=== PATIENT | female | born 1960 | race Caucasian/White ===

== ENCOUNTER 2022-09-11 15:56 | Emergency (ER) | payer BC, SELFPAY ==
[2022-09-11 16:00] VITALS: BP 135/75; PULSE 67; RESP 18; TEMP 36.1; O2SAT 99; BMI 23.6
--- NOTE | 2022-09-11 16:16 | ED.GENADULT ---
HPI - General Adult General Time Seen by Provider: 16:17 Date Seen: 09/11/22 Chief complaint: Chest Pain Stated complaint: Chest pains Time Seen by Provider: 09/11/22 16:16 Source: patient and RN notes reviewed Mode of arrival: ambulatory Limitations: no limitations History of Present Illness HPI narrative: Patient is a 61-year-old female coming in with complaint of left-sided chest pain. It has been there about a week. She admits for about a month she has just been tired and fatigued. On Sunday the chest pain seemed to radiate across to the right side. She does not have any GI symptoms with this. She has remotely had heartburn, this feels nothing like it. Seems to be getting worse, is not pleuritic. She cannot touch it, seems deeper than that. She is a smoker, there is a lot of family history of heart disease which concerned her. She herself has never been diagnosed with heart disease. Nothing has really made this improve or worsen that she can state. No associated GI symptoms. No fevers chills, no cough or cold symptoms. She is not short of breath. She will occasionally feel a little sense of a flip-flop or regular be in her chest but no prolonged palpitations or abnormal heart beat that is sustained. She has a history trigeminal neuralgia, has had a partial thyroidectomy but is not on any thyroid supplement. Related Data Previous Rx's Medication Instructions Recorded carbamazepine 100 mg 100 mg PO BID #180 caps 06/02/22 capsule,extended release [id number] hydrocodone 5 mg-acetaminophen 325 1 tab PO Q8H PRN pain #30 tabs 06/02/22 mg tablet Allergies Allergy/AdvReac Type Severity Reaction Status Date / Time No Known Drug Allergies Allergy Verified 09/11/22 16:04 Review of Systems Status of ROS: Reports: 10 or more systems reviewed and unremarkable except as noted in History and below PFSH PFS Surgical History Status post hysterectomy ?Z90.710 - Acquired absence of both cervix and uterus (ICD-10) 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 (ICD-10) Social History Smoking Status: Heavy tobacco smoker What tobacco products do you use: cigarettes Smoking packs per day: 0.5 Smoking cigarettes per day: 10.0 Years smoked: 40 Smoking pack-years: 20.00 Do you use any of these nicotine containing products: None Second hand tobacco smoke exposure: No How often do you have a drink containing alcohol: never AUDIT-C Alcohol total score: 0 Non-prescribed substance use: denies use Exam Const: Vital Signs, click to edit/add: Vital Signs - 24 hr 09/11/22 16:00 09/11/22 16:24 Temperature 97.0 F L Pulse Rate [Pulse Oximeter] 67 Respiratory Rate 18 Blood Pressure [Ri ght Upper Arm] 135/75 Pulse Oximetry 99 98 Oxygen Delivery Me thod Room Air Documenting provider has reviewed patient's vital signs: yes Common normals: no apparent distress, average body habitus, oriented x3, no limitations, healthy appearing and alert General appearance: cooperative, comfortable, well kempt and well developed Nutritional appearance: overweight HENMT: Common normals: normocephalic, head/scalp atraumatic, hearing grossly normal bilaterally, external ears normal, external nose normal, nasal mucous membranes and turbinates normal, moist oral mucous membranes and oropharynx normal Head and scalp: normocephalic and atraumatic Nose: external nose normal and nasal mucous membranes and turbinates normal External ear: external ears normal Eye: Common normals: PERRL, EOMs intact bilaterally, conjunctivae normal and no scleral icterus Conjunctiva: conjunctiva(e) normal Pupil: PERRL Neck & C-Spine: Common normals: full ROM, no lymphadenopathy, supple and no JVD Other: Well-healed scar anteriorly along the base of her neck, feel no thyromegaly masses or nodules. Chest: Common normals: inspection of chest normal and palpation of chest normal (Underlying breast without any palpable abnormality) Resp: Common normals: normal respiratory effort, no retractions, no use of accessory muscles and clear to auscultation bilaterally Auscultation: clear to auscultation bilaterally Cardio: Common normals: no JVD, regular rate, regular rhythm, S1 normal heart sound, S2 normal heart sound, no gallops, no clicks and no murmurs Rate: regular rate Rhythm: regular rhythm Heart sounds: S1 normal and S2 normal GI: Common normals: Normal to inspection, nondistended, normoactive bowel sounds present, soft to palpation, non-tender, no hepatosplenomegaly and no masses Palpation: soft and no hepatosplenomegaly Extremity: Other: No lower extremity edema, no calf tenderness. Neuro: Common normals: oriented x3 Sensorium/orientation: alert Psych: Appearance: well kempt Course Course Hospital Course: Patient has had a week of symptoms, solitary troponin and EKG should be sufficient. Liver on cardiac monitoring pulse oximetry. Did review with her will look at a chest x-ray, may need to proceed to chest CT imaging. I am also doing a D-dimer. Given she has had a partial thyroidectomy and has had some symptoms of fatigue for about a month, will do screening TSH. This time she is hemodynamically stable. Cardiopulmonary etiologies, even possibly GI etiologies with referral to chest could all be possible. Musculoskeletal certainly could be underlying causative issue for her pain. Symptoms are not pleuritic. If her troponin or EKG should show something abnormal, will consider aspirin but otherwise I think other etiologies are more likely given that she has had a week of symptoms. Reevaluation(s) Reevaluation #1: Reviewed with patient her labs are all normal, awaiting over-read of her chest x-ray. Discussed of the chest x-ray has no concerns with that from the radiologist, likely outpatient follow-up. Could consider starting something like omeprazole in case this might be gastric or GI related. Time: 18:15 Reevaluation #2: Reviewed with patient her chest x-ray is coming back normal. We will discharge to home. Instead of prescription omeprazole, she wants to miner pick [id number] which is fine. Will have her do a 2 week trial. Time: 18:48 Vital Signs Vital signs: Initial Vital Signs Temperature 97.0 F L 09/11/22 16:00 Temperature Source Temporal Artery Scan 09/11/22 16:00 Pulse Rate 67 09/11/22 16:00 Respiratory Rate 18 09/11/22 16:00 Blood Pressure 135/75 09/11/22 16:00 Blood Pressure Mean 95 09/11/22 16:00 Blood Pressure Position Sitting 09/11/22 16:00 Pulse Oximetry 99 09/11/22 16:00 Oxygen Delivery Method Room Air 09/11/22 16:00 Vital Signs Temperature 97.0 F L 09/11/22 16:00 Pulse Rate 67 09/11/22 16:00 Respiratory Rate 18 09/11/22 16:00 Blood Pressure 135/75 09/11/22 16:00 Pulse Oximetry 99 09/11/22 16:00 Oxygen Delivery Method Room Air 09/11/22 16:00 Temperature 97.0 F L 09/11/22 16:00 Pulse Rate 67 09/11/22 16:00 Respiratory Rate 18 09/11/22 16:00 Blood Pressure 135/75 09/11/22 16:00 Pulse Oximetry 98 09/11/22 16:24 Oxygen Delivery Method Room Air 09/11/22 16:00 Medical Decision Making Lab Data Lab results reviewed: Yes I reviewed the patient's lab results Labs: Lab Results 09/11/22 09/11/22 09/11/22 Range/Units 16:15 16:35 17:30 WBC 7.47 (4.50-11.00) K/uL RBC 4.24 (4.00-5.20) m/uL Hgb 13.1 (12.0-16.0) gm/dL Hct 39.1 (33.0-51.0) % MCV 92 (80-100) fL MCH 31 (26-34) pg MCHC 34 (32-36) gm/dL RDW Coeff of Maria Dolores 12.4 (11.5-15.5) % Plt Count 201 (140-440) K/uL Neut % (Auto) 61.3 (42.0-72.0) % Lymph % (Auto) 32.9 (20-44) % [place] % (Auto) 4.4 (0.0-11.0) % Eos % (Auto) 0.9 (0.0-7.0) % Baso % (Auto) 0.4 (0.0-3.0) % Neut # (Auto) 4.57 (1.7-7.0) K/uL Lymph # (Auto) 2.46 (0.90-2.90) K/uL [place] # (Auto) 0.30 (0.00-0.90) K/UL Eos # (Auto) 0.07 (0.00-0.50) K/uL Baso # (Auto) 0.03 (0.00-0.30) K/uL D-Dimer Quant (PE/DVT) 0.30 (0.00-0.50) ug/ml Sodium 137 (135-149) mmol/L Potassium 3.9 (3.6-5.1) mmol/L Chloride 106 (96-114) mmol/L Carbon Dioxide 26 (20-32) mmol/L BUN 11 (7-30) mg/dL Creatinine 0.8 (0.5-1.5) mg/dL Estimated Creat Clear 48.87 Estimated GFR 84 ml/min Glucose 103 (60-115) mg/dL Lactate 0.6 (0.5-1.9) mmol/L Calcium 8.8 (8.4-10.6) mg/dL Magnesium 2.1 (1.5-2.6) mg/dL Total Bilirubin 0.4 (0.1-1.5) mg/dL AST 23 (12-35) U/L ALT 14 (4-35) U/L Alkaline Phosphatase 78 (40-150) U/L Troponin I < 0.01 L (0.01-0.04) ng/mL C-Reactive Protein < 0.5 L (0.5-1.0) mg/dL NT-Pro-B Natriuret Pep 73 pg/mL Total Protein 7.3 (6.0-8.3) g/dL Albumin 4.2 (3.3-5.0) g/dL Lipase 69 (23-300) U/L TSH 2.550 (0.270-4.200) uIU/mL Urine Color Yellow (Yellow) Urine Appearance Clear (Clear) Urine pH 7.0 (5.0-8.5) Ur Specific [place] 1.010 (1.000-1.030) Urine Protein Negative (Negative) Urine Glucose (UA) Negative (Negative) Urine Ketones Negative (Negative) Urine Blood Trace-intact A (Negative) Urine Nitrite Negative (Negative) Urine Bilirubin Negative (Negative) Urine Urobilinogen 0.2 (0.2-1.0) Ur Leukocyte Esterase Negative (Negative) Urine RBC 0-2 (0-2) Urine WBC 0-2 (0-5) Ur Squamous Epith Cells None (None-Few) Urine Bacteria None (None) POC Troponin I 0.00 L (0.01-0.04) ng/ml Imaging Data Chest x-ray: Attestation: I have reviewed the pertinent imaging results. My impression: I do not appreciate any acute pathology on my preliminary review of this chest x-ray. Radiologist's impression: Patient: NAYLA PATE Facility:?[facility] Patient ID:?[id number] Site Patient ID:?[id number]. Site :?[id number] Study:?XRay Chest PORTABLE-09/11/2022 5:47:29 PM Ordering Physician:Esmer Walsh Final Report: HISTORY: Left chest pain. COMPARISON: None available FINDINGS: A portable erect AP view of the chest was obtained at 17 15 hours. The lungs are clear. No focal or diffuse infiltrates are present. There is no sign of pneumothorax or abnormality of the ribs to correlate with the history of chest pain. The heart is normal in size. The mediastinum is normal in appearance. The osseous structures are normal in appearance for the patient`s age. IMPRESSION: Normal portable chest single view. Dictated by Edgar Yates MD @ 09/11/2022 6:28:25 PM (Electronic Signature) ECG Data Attestation: I personally reviewed and interpreted this ECG as follows: (Normal sinus rhythm, 67 beats per minute. Flipped T-waves V1 V2 with poor R-wave progression. QT corrected 429 milliseconds. Do not see any ischemic changes.) Prior ECG tracings: not available for review Critical Care Time Critical Care Time Critical Care Time: No Discharge Plan Discharge Clinical Impression: Left-sided chest pain Patient Disposition: Home, Self-Care Condition: Stable Instructions: Chest Pain (ED), Noncardiac Chest Pain (ED) Additional Instructions: Try the [id number] omeprazole/Prilosec for 2 weeks and see if this helps her symptoms. Need you to schedule a follow-up with your primary care provider within the next 1-2 weeks, sooner if concerns. If at any point you have increased symptoms, have anything new or concerning to you, it is always recommended that you seek re-evaluation and in the ER if need be. Activity Level: Activity as Tolerated Prescriptions: No Action carbamazepine 100 mg capsule, ER multiphase 12 hr 100 mg PO BID Qty: 180 3RF hydrocodone-acetaminophen 5-325 mg tablet 1 tab PO Q8H PRN (Reason: pain) Qty: 30 0RF Follow Up/Referrals: Khris Sorenson MD [Staff Physician] - Stand Alone Forms: [employer] Info Instructions
[2022-09-11 16:24] VITALS: O2SAT 98
--- NOTE | 2022-09-11 16:24 | CRLHL7_ITS ---
For Patients: As a result of the Century Cures Act, medical imaging exams and procedure reports are released immediately into your electronic medical record. You may view this report before your referring provider. If you have questions, please contact your health care provider. HISTORY: Left chest pain. COMPARISON: None available FINDINGS: A portable erect AP view of the chest was obtained at 17 15 hours. The lungs are clear. No focal or diffuse infiltrates are present. There is no sign of pneumothorax or abnormality of the ribs to correlate with the history of chest pain. The heart is normal in size. The mediastinum is normal in appearance. The osseous structures are normal in appearance for the patient`s age. IMPRESSION: Normal portable chest single view. Dictated by Edgar Yates MD @ 09/11/2022 6:28:25 PM (Electronically Signed)
[2022-09-11 16:35] LABS: Lactate* 0.6 mmol/L (0.5-1.9)
[2022-09-11 16:36] LABS: Basophils Absolute Auto 0.03 K/uL (0.00-0.30); Basophils Percent Auto 0.4 % (0.0-3.0); Eosinophils Absolute Auto 0.07 K/uL (0.00-0.50); Eosinophils Percent Auto 0.9 % (0.0-7.0); Hematocrit 39.1 % (33.0-51.0); Hemoglobin* 13.1 gm/dL (12.0-16.0); Immature Granulocytes Abs Auto 0.01 K/uL (0.00-0.30); Immature Granulocytes Pct Auto 0.1 %; Lymphocytes Absolute Auto 2.46 K/uL (0.90-2.90); Lymphocytes Percent Auto 32.9 % (20-44); Mean Corpuscular HGB Conc 34 gm/dL (32-36); Mean Corpuscular Hemoglobin 31 pg (26-34); Mean Corpuscular Volume 92 fL (80-100); Monocytes Percent Auto 4.4 % (0.0-11.0); Neutrophils Absolute Auto 4.57 K/uL (1.7-7.0); Neutrophils Percent Auto 61.3 % (42.0-72.0); Platelet Count* 201 K/uL (140-440); RDW Coefficient of Variation % 12.4 % (11.5-15.5); Red Blood Count 4.24 m/uL (4.00-5.20); White Blood Count* 7.47 K/uL (4.50-11.00)
[2022-09-11 16:37] LABS: Slide Review Reflex No
[2022-09-11 16:49] LABS: Albumin* 4.2 g/dL (3.3-5.0); Chloride* 106 mmol/L (96-114); Sodium* 137 mmol/L (135-149)
[2022-09-11 16:50] LABS: Potassium* 3.9 mmol/L (3.6-5.1)
[2022-09-11 16:52] LABS: Creatinine* 0.8 mg/dL (0.5-1.5); Est. Creatinine Clearance* 48.87; Estimated Glomerular Filt Rate 84 ml/min
[2022-09-11 16:53] LABS: Alanine Aminotransferase* 14 U/L (4-35); Alkaline Phosphatase* 78 U/L (40-150); Aspartate Amino Transferase* 23 U/L (12-35); Bilirubin Total* 0.4 mg/dL (0.1-1.5); Blood Urea Nitrogen* 11 mg/dL (7-30); Calcium* 8.8 mg/dL (8.4-10.6); Carbon Dioxide* 26 mmol/L (20-32); Glucose* 103 mg/dL (60-115); Lipase* 69 U/L (23-300); Magnesium* 2.1 mg/dL (1.5-2.6); Total Protein* 7.3 g/dL (6.0-8.3)
[2022-09-11 16:59] LABS: C Reactive Protein* < 0.5 mg/dL (0.5-1.0)
[2022-09-11 17:06] LABS: NT Pro B Type NatriureticPept* 73 pg/mL; Troponin I* < 0.01 ng/mL (0.01-0.04)
[2022-09-11 17:45] LABS: Appearance Urine Clear (Clear); Bilirubin Urine Negative (Negative); Blood Urine Trace-intact (Negative); Color Urine Yellow (Yellow); Glucose Urine Negative (Negative); Ketones Urine Negative (Negative); Leukocyte Esterase Urine Negative (Negative); Nitrite Urine Negative (Negative); Protein Urine Negative (Negative); Urobilinogen Urine 0.2 (0.2-1.0)
[2022-09-11 17:55] LABS: RBC Urine 0-2 (0-2); WBC Urine 0-2 (0-5)
== END 2022-09-11 18:55 | disposition home or self-care (01) ==
PROVIDERS: Emergency Provider Family Medicine
DX: R07.9 Chest pain, unspecified (principal)
CPT/HCPCS: 36415; 71045; 80053; 81001; 83605; 83690; 83735; 83880; 84443; 84484; 85025; 85379; 86140; 93005; 94761; 99284; 99285

== ENCOUNTER 2023-05-31 08:59 | Outpatient (CLI) | payer MEDICAID, SELFPAY | END 2023-05-31 09:00 | disposition home or self-care (01) | PROVIDERS: Visit Provider Physician Assistant | DX: R35.0 Frequency of micturition (principal); R50.9 Fever, unspecified; N39.0 Urinary tract infection, site not specified | CPT/HCPCS: 87086 ==

== ENCOUNTER 2023-07-28 17:22 | Emergency (ER) | payer MEDICAID, SELFPAY ==
[2023-07-28 17:30] VITALS: BP 145/72; PULSE 72; RESP 14; TEMP 36.3; O2SAT 99; BMI 24.1
--- NOTE | 2023-07-28 17:35 | ED_ITS ---
HPI - General Adult General Chief complaint: Unspecified Complaint, Adult Stated complaint: blue hands, weird feelings on hands Time Seen by Provider: 07/28/23 17:34 History of Present Illness HPI narrative: Pt here for eval of bilateral hand numbness. Denies pain, numbness/ tingling, SO B, lightheadedness , CP. Reports 1 previous episode aprox 6 mo ago. Noticed discoloration started this AM 62-year-old woman presenting to the emergency department with concern of painles s bluing of her hands. Discoloration has been going on now over 5 hours. First noticed today while playing cards with her siblings. They commented on the color of her hands. She does not have any loss of sensation or strength. No chest pain or shortness of breath. No new exercise intolerance No exposure to any dyes nor suspecting any staining otherwise. Does not have a history of cold sensitivity in particular. Did have an episode similar which was much more brief induration about 6 months ago. She does smoke. Related Data Previous Rx's Medication Instructions Recorded celecoxib 200 mg capsule See Rx Instructions PO .ud #28 caps 07/24/23 Allergies Allergy/AdvReac Type Severity Reaction Status Date / Time No Known Drug Allergies Allergy Unverified 07/24/23 14:12 Review of Systems Status of ROS: Reports: 6 or more systems reviewed and unremarkable except as noted in History and below [facility] Surgical History 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 (ICD-10) Status post hysterectomy ?Z90.710 - Acquired absence of both cervix and uterus (ICD-10) Social History Smoking Status: Heavy tobacco smoker What tobacco products do you use: cigarettes Smoking packs per day: 0.5 Smoking cigarettes per day: 10.0 Years smoked: 40 Smoking pack-years: 20.00 Do you use any of these nicotine containing products: None Second hand tobacco smoke exposure: No How often do you have a drink containing alcohol: never AUDIT-C Alcohol total score: 0 Non-prescribed substance use: denies use Exam Narrative: Exam Narrative: Very pleasant. NAD. Breathing easily. Lungs are clear. Heart in regular rate and rhythm. No supraclavicular swellings or thrills. Slightly diminished radial pulse on the left versus the right but both are strong. Hands are warm. No sensory deficits appreciated. Does not have clubbing of her nails. The lunula appears somewhat advanced though curiously. There is generalized bluing to the right greater than left hand. Middle finger more involved on the right hand. Dorsal surface knuckles are a little more blue. The hypothenar eminence in particular is purplish blue. Nontender to palpation. Pinks up quickly distally to pressure. Const: Vital Signs, click to edit/add: Vital Signs - 24 hr 07/28/23 17:30 Temperature 97.4 F L Pulse Rate [Pulse Oximeter] 72 Respiratory Rate 14 Blood Pressure [Ri ght Upper Arm] 145/72 H Pulse Oximetry 99 Oxygen Delivery Me thod Room Air Documenting provider has reviewed patient's vital signs: yes Course Vital Signs Vital signs: Initial Vital Signs Temperature 97.4 F L 07/28/23 17:30 Temperature Source Temporal Artery Scan 07/28/23 17:30 Pulse Rate 72 07/28/23 17:30 Pulse Rhythm Regular 07/28/23 17:30 Respiratory Rate 14 07/28/23 17:30 Blood Pressure 145/72 H 07/28/23 17:30 Blood Pressure Mean 96 07/28/23 17:30 Blood Pressure Position Sitting 07/28/23 17:30 Pulse Oximetry 99 07/28/23 17:30 Oxygen Delivery Method Room Air 07/28/23 17:30 Vital Signs Temperature 97.4 F L 07/28/23 17:30 Pulse Rate 72 07/28/23 17:30 Respiratory Rate 14 07/28/23 17:30 Blood Pressure 145/72 H 07/28/23 17:30 Pulse Oximetry 99 07/28/23 17:30 Oxygen Delivery Method Room Air 07/28/23 17:30 Temperature 97.4 F L 07/28/23 19:12 Pulse Rate 72 07/28/23 19:12 Respiratory Rate 14 07/28/23 19:12 Blood Pressure 145/72 H 07/28/23 19:12 Pulse Oximetry 99 07/28/23 17:30 Oxygen Delivery Method Room Air 07/28/23 17:30 Medical Decision Making MDM Narrative Medical decision making narrative: This is somewhat puzzling. Does not seem to have criteria to meet Raynaud's. Main risk factor for poor perfusion appears to be smoking however other than color appears to be well perfused. Has no symptoms upstream vascular or neuro johnson. Is wearing rather dark maybe jeans and a dark sweatshirt as well. Neither of which are new. This discoloration does not appear to come off. On reassessment does appear to fade somewhat and prior to departure discoloration was markedly less. I did discuss this case with vascular on-call. They are puzzled as well. Very well be consulting with colleague and be in touch with Ms. Gee for further evaluation. There does not appear to be any emergent situation here today otherwise. See patient discharge plan for further discussion Discharge Plan Discharge Clinical Impression: Blue color skin Patient Disposition: Home, Self-Care Condition: Improved Additional Instructions: I spoke with vascular surgery on-call at [facility] [employer] [facility] [employer]. Anticipate hearing from them on Sunday. You might be hearing from a Dr. Valdez (vascular medicine specialist) or his office You might want to schedule a follow-up with your primary care provider to schedule a cardiac ultrasound or other evaluation. In the meantime if you have clear weakness, loss of sensation, clear swelling or pain, be seen. Prescriptions: No Action celecoxib 200 mg capsule See Rx Instructions PO .ud Qty: 28 2RF Rx Instructions: 200 mg bid for 7D, then 200 mg QD orally UD; Follow Up/Referrals: Khris Sorenson MD [Primary Care Provider] - Stand Alone Forms: Take the Interview Info Instructions
[2023-07-28 19:12] VITALS: BP 145/72; PULSE 72; RESP 14; TEMP 36.3
== END 2023-07-28 19:18 | disposition home or self-care (01) ==
PROVIDERS: Emergency Provider Family Medicine; PCP Family Medicine
DX: R23.8 Other skin changes (principal)
CPT/HCPCS: 99283; 99284

== ENCOUNTER 2023-08-02 11:11 | Outpatient (CLI) | payer MEDICAID, SELFPAY ==
[2023-08-02 11:28] LABS: Basophils Absolute Auto 0.04 K/uL (0.00-0.30); Basophils Percent Auto 0.6 % (0.0-3.0); Eosinophils Absolute Auto 0.11 K/uL (0.00-0.50); Eosinophils Percent Auto 1.6 % (0.0-7.0); Hematocrit 43.2 % (33.0-51.0); Hemoglobin* 14.2 gm/dL (12.0-16.0); Immature Granulocytes Abs Auto 0.01 K/uL (0.00-0.30); Immature Granulocytes Pct Auto 0.1 %; Lymphocytes Absolute Auto 2.58 K/uL (0.90-2.90); Lymphocytes Percent Auto 37.6 % (20-44); Mean Corpuscular HGB Conc 33 gm/dL (32-36); Mean Corpuscular Hemoglobin 31 pg (26-34); Mean Corpuscular Volume 93 fL (80-100); Monocytes Percent Auto 4.2 % (0.0-11.0); Neutrophils Absolute Auto 3.84 K/uL (1.7-7.0); Neutrophils Percent Auto 55.9 % (42.0-72.0); Platelet Count* 254 K/uL (140-440); RDW Coefficient of Variation % 12.3 % (11.5-15.5); Red Blood Count 4.63 m/uL (4.00-5.20); White Blood Count* 6.87 K/uL (4.50-11.00)
[2023-08-02 11:33] LABS: Slide Review Reflex No
[2023-08-02 11:52] LABS: Chloride* 106 mmol/L (96-114)
[2023-08-02 11:53] LABS: Potassium* 3.7 mmol/L (3.6-5.1); Sodium* 140 mmol/L (135-149)
[2023-08-02 11:55] LABS: Creatinine* 0.6 mg/dL (0.5-1.5); Estimated Glomerular Filt Rate 101 ml/min
[2023-08-02 11:56] LABS: Anion Gap 5 mEq/L (7-15); Blood Urea Nitrogen* 11 mg/dL (7-30); Calcium* 9.4 mg/dL (8.4-10.6); Carbon Dioxide* 29 mmol/L (20-32); Glucose* 90 mg/dL (60-115)
== END 2023-08-02 11:12 | disposition home or self-care (01) ==
PROVIDERS: PCP Family Medicine; Visit Provider Internal Medicine
DX: I20.1 Angina pectoris with documented spasm (principal)
CPT/HCPCS: 36415; 80048; 85025

== ENCOUNTER 2023-08-14 13:28 | Outpatient (CLI) | payer MEDICAID, SELFPAY ==
--- NOTE | 2023-08-14 14:00 | US_ITS ---
Patient: NAYLA PATE Facility:?[facility] Patient ID:?[id number] Site Patient ID:?[id number]. Site :?[id number] Study:?US-Extremity Bilateral upper arterial-08/14/2023 2:42:31 PM Ordering Physician:MEHUL PEDRO Final Report: INDICATION Vasospastic angina. COMPARISON None available. TECHNIQUE Duplex arterial ultrasound examination in bilateral upper extremities with 2D and spectral analysis and color Doppler imaging. FINDINGS ARTERIAL DUPLEX US UPPER EXTREMITIES (Velocity in cm/sec) RIGHT PSV cm/sec WAVEFORM Tri=T Bi=B Clare=M Subclavian Supra 104 T Subclavian Sub 51 B Axillary 80 T Brachial Prox 105 T Brachial Mid 114 T Brachial Dist 92 T Radial Prox 47 B Radial Dist 62 T Ulnar Prox 47 B LEFT PSV cm/sec WAVEFORM Tri=T Bi=B Clare=M Subclavian Supra 79 B Subclavian Sub 90 T Axillary 74 T Brachial Prox 118 T Brachial Mid 130 B Brachial Dist 106 B Radial Prox 58 B Radial Dist 42 B Ulnar Prox 44 B Ulnar Dist 77 B IMPRESSION Multiphasic waveforms seen throughout bilateral upper extremities without a focal velocity shift to suggest a hemodynamically significant stenosis. Raymundo Bonilla M.D. Interventional Radiology/Diagnostic Radiology (IR/DR) [email or web address] LORIN/florentin D& Transcribed: 10:0 a.mPaul lerma/Dictated by: Raymundo Bonilla MD @ 08/15/2023 7:56:00 AM Signed by:?Raymundo Bonilla MD @08/15/2023 12:05:50 PM (Electronic Signature)
== END 2023-08-14 13:29 | disposition home or self-care (01) ==
LOC: US 13:29
PROVIDERS: PCP Family Medicine; Visit Provider Internal Medicine
DX: I20.1 Angina pectoris with documented spasm (principal)
CPT/HCPCS: 93930

== ENCOUNTER 2023-08-20 08:14 | Outpatient (CLI) | payer MEDICAID, SELFPAY | END 2023-08-20 08:15 | disposition home or self-care (01) | LOC: RAD 08:15 | PROVIDERS: PCP Family Medicine; Visit Provider Family Medicine | DX: I73.9 Peripheral vascular disease, unspecified (principal) | CPT/HCPCS: 93308; 93321 ==

== ENCOUNTER 2024-02-21 15:00 | Outpatient (CLI) | payer MEDICAID, SELFPAY | END 2024-02-21 15:01 | disposition home or self-care (01) | LOC: NFLDREF 02-22 11:59 | PROVIDERS: PCP Family Medicine; Referring Provider Family Medicine; Visit Provider Physician Assistant | DX: R35.0 Frequency of micturition (principal) | CPT/HCPCS: 87086 ==

== ENCOUNTER 2025-05-12 11:37 | Day surgery (SDC) | payer MEDICAID, SELFPAY ==
[2025-05-12] VITALS (38 sets, daily range): BP systolic 97–195; BP diastolic 49–176; PULSE 60–88; RESP 17–21; TEMP 36.3–37.1; O2SAT 91–100; BMI 23.6
--- OUTSIDE RECORDS SUMMARY | 2025-05-12 11:40 | XMS_ITS | Clinical Summary ---
Author Organization [facility] Address [address] [place] [address] Care Team Providers Care Building Drafting Officer Name Role Phone Khris Sorenson MD Primary Care Provider [phone] Allergies No known active allergies Medications MedicationSigDispense QuantityRefillsLast FilledStart DateEnd DateStatus celecoxib (CELEBREX) 200 mg capsule Take 200 mg by mouth once daily with a meal.4Active Active Problems No known active problems Immunizations ImmunizationAdministration DatesNext UxiOhmk6401/22/2010 Family History Medical HistoryRelationNameCommentsCancer-breastSisterRelationNameStatusComments Sister Social History Tobacco UseTypesPacks/DayYears UsedDateSmoking Tobacco: Every DayCigarettes0.530 Smokeless Tobacco: Never Tobacco Cessation:Counseling Given: Yes Alcohol UseStandard Drinks/WeekCommentsYes0 (1 standard drink = 0.6 oz pure alcohol)once every 3 months averageSocial ConnectionsAnswerDate Recorded Frequency of Communication with Friends and FamilyNot on file08/02/2023Financial Resource StrainAnswerDate RecordedDifficulty of Paying Living ExpensesNot on file2Difficulty of Paying Living ExpensesNot on file2 CommentsNoSex and Gender InformationValueDate RecordedSex Assigned at BirthNot on fileLegal NalZklcbm74/14/2013 7:58 AM CSTGender IdentityNot on fileSexual OrientationNot on file Last Filed Vital Signs Vital SignReadingTime TakenCommentsBlood Ocvofwli582/7408/02/2023 9:06 AM RADIOLOGY SPECIALIST Rauwv658108/02/2023 9:06 AM AYOFjiuhnankup43.6 ??C (97.8 ??F)03/22/2020 1:53 PM CDTRespiratory Vguc800701/23/2010 1:00 AM CDTOxygen Unotsxzrmr40%08/02/2023 9:06 AM CSTInhaled Oxygen Concentration--Wgaehd36 kg (141 lb 3.2 oz)08/02/2023 9:06 AM ZRCXlwrbe044.2 cm (5' 1.5)08/02/2023 9:06 AM CSTBody Mass Index26.25 08/02/2023 9:06 AM RADIOLOGY SPECIALIST Plan of Treatment Health MaintenanceDue DateLast DoneCommentsDepression screening for age 12+ 1972HIV for age 15-Hepatitis C screening for age 18-79 1978Pneumococcal series for age 50+ (1 of 2 - PCV)11/24/1979Pap test for age 21-Colonoscopy through age Zoster (shingles) series for age 50+ (1 of 2)2010Tetanus ypmfbwt43/28/Mammogram for age 45-Lipids for age 45-BMI (ht and wt on same day) for age 18+503/11/2023, 02/05/2019COVID-19 vaccine series ( season)502/, 06/14/2020Influenza Vaccine (#1)2025RSV vaccine for adults or (1 - 1-dose 75+ series) 11/24/2035Hepatitis B series for 19+Aged OutNo longer eligible based on patient's age to complete this topic Procedures Procedure NamePriorityDate/TimeAssociated DiagnosisCommentsXR MAMMO BILAT JJBRQLMAETbshndm43/11/2019 2:46 PM CDT Visit for screening mammogram LIPID PANEL W REFLEX MEASURED YYFFdxyubo82/11/2019 2:24 PM CDT Screening for lipid disorders from Last 3 Months or Most Recently Relevant to Health Maintenance Results * XR MAMMO BILAT SCREENING (02/05/2019 2:46 PM CDT)Anatomical RegionLaterality ModalityBREASTS, Breast Left, Breast RightBilateralMammographySpecimen (Source)Anatomical Location / LateralityCollection Method / VolumeCollection TimeReceived Time Impressions 02/06/2019 3:03 PM CDT There is no radiographic evidence for malignancy. Recommend annual mammograms. A lay language report of this examination will be provided to the patient. MAMMOGRAM ASSESSMENT: ??ACR 1 Negative Narrative 02/06/2019 3:03 PM CDT XR MAMMO BILAT SCREENING [[id number]] CLINICAL HISTORY: ??This is an asymptomatic 58 y.o. patient. INDICATION FOR EXAM: Mammogram Screening. TECHNIQUE: CC & MLO views were obtained. This digital study was evaluated with the assistance of Computer-Aided Detection. COMPARISON FILM: This is a baseline study. FINDINGS: ??Mammographically, the breast tissue has scattered fibroglandular densities. ??There are no dominant masses, suspicious micro calcifications or areas of architectural distortion. Authorizing ProviderResult TypeResult StatusTara Kerline Morel PAMAMMOFinal Result * (ABNORMAL) LIPID PANEL W REFLEX MEASURED LDL (02/05/2019 2:24 PM CDT)Component ValueRef RangeTest MethodAnalysis TimePerformed AtPathologist Signature CHOLESTEROL,JQCOA044(H)100 - 199 mg/dL02/05/2019 5:59 PM [facility] FTQUCWPZIRWAKLLINQEIMHM008<150 mg/dL02/05/2019 5:59 PM CDT [facility] LABORATORYHDL WGVPWNTCFNH72>40 mg/dL 02/05/2019 5:59 PM [facility] LABORATORYNON-HDL JBMIBRYDNCL771(H)<145 mg/dl02/05/2019 5:59 PM [facility] LABORATORYCHOL/HDL RATIO4.67(H)<4.50002/05/2019 5:59 PM [facility] LABORATORYLDL JNVRYOAIFRL963(H)<=130 mg/dL02/05/2019 5:59 PM [facility] LABORATORYPROVIDER ORDERED STATUS EPJNAO5502/05/2019 5:59 PM [facility] Specimen (Source)Anatomical Location / LateralityCollection Method / Volume Collection TimeReceived TimeBloodBLOOD SPECIMEN / UnknownButterfly / Unknown 02/05/2019 2:24 PM CDT02/05/2019 2:26 PM CDT Narrative Authorizing ProviderResult TypeResult StatusTara Kerline Morel PACHEMISTRYFinal ResultPerforming OrganizationAddressCity/State/ZIP CodePhone Number [facility] [address] [place] [address], from Last 3 Months or Most Recently Relevant to Health Maintenance Insurance Care Teams Team MemberRelationshipSpecialtyStart DateEnd Date Khris Sorenson MD [address] [place] [address] [facility]
--- NOTE | 2025-05-12 12:18 | CRLHL7_ITS ---
For Patients: As a result of the Century Cures Act, medical imaging exams and procedure reports are released immediately into your electronic medical record. You may view this report before your referring provider. If you have questions, please contact your health care provider. Indication: ABDOMEN PAIN Technique: CT abdomen/pelvis with IV contrast utilizing 66 mL Isovue 370 Comparison: CT abdomen/pelvis on October 18, 2015 Findings: Lower thorax: Minimal linear atelectasis in the right middle lobe and lingula. Abdomen/pelvis: The liver, gallbladder and biliary system, spleen, pancreas, and adrenal glands are unremarkable. The kidneys are normal in size and perfusion a normal fashion. Extrarenal pelvises bilaterally. No renal calculi. No hydroureteronephrosis. Redemonstration of a subcentimeter exophytic cyst at the lower pole of left kidney with likely minimal dependent calcium precipitate (renal milk of calcium cyst). The bladder is unremarkable. Status post hysterectomy. No suspicious adnexal lesions. Tiny hiatal hernia. No evidence of bowel obstruction. The proximal appendix is dilated to approximately 1.5 centimeters in diameter with thickened and enhancing mari measuring up to approximately 5 millimeters (series number 2, image [id number]; series number 4, image [id number]) with multiple appendicoliths, faint periappendiceal fat stranding, and trace free fluid in the pelvis, concerning for acute appendicitis. No free air or abscess. No abdominopelvic lymphadenopathy. Mild calcific atherosclerosis of the aortoiliac system. Soft tissue/musculoskeletal: Diastasis recti with tiny fat containing umbilical hernia. The bones are unremarkable for the patient`s age. Impression: 1. CT findings as detailed above concerning for acute, uncomplicated appendicitis; recommend consultation with surgery. 2. Additional incidental findings as detailed above. Findings were discussed with Dr. Rojas at approximately 2:14 p.m. on 05/12/2025. Please note that all CT scans at this facility use dose modulation, iterative reconstruction, and/or weight-based dosing when appropriate to reduce radiation dose to as low as reasonably achievable. Dictated by Ferdinand Christie MD @ 05/12/2025 2:15:50 PM (Electronically Signed)
--- NOTE | 2025-05-12 12:40 | ED.GENADULT ---
HPI - General Adult General Chief complaint: Abdominal Pain Stated complaint: Abdominal pain Time Seen by Provider: 05/12/25 12:02 Source: patient Mode of arrival: ambulatory Limitations: no limitations History of Present Illness HPI narrative: 64-year-old female presenting today with abdominal pain. Pain started a few days ago the left side of the abdomen but now radiates everywhere. she denies any vomiting but has felt nauseated. She denies any fevers. She denies diarrhea or constipation. No urinary symptoms. Patient denies alcohol use, does use tobacco. She denies any new medications. Past surgical history includes hysterectomy and thyroid surgery. She is still able to eat. 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 - Other specified peripheral vascular diseases (ICD-10) Surgical History 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 (ICD-10) Status post hysterectomy ?Z90.710 - Acquired absence of both cervix and uterus (ICD-10) Social History Smoking Status: Heavy tobacco smoker What tobacco products do you use: cigarettes Smoking packs per day: 0.5 Smoking cigarettes per day: 10.0 Years smoked: 40 Smoking pack-years: 20.00 Do you use any of these nicotine containing products: None Second hand tobacco smoke exposure: No How often do you have a drink containing alcohol: never AUDIT-C Alcohol total score: 0 Non-prescribed substance use: denies use Exam Narrative: Exam Narrative: Well-nourished well-developed patient in no acute distress. Alert and oriented. Answers questions appropriately. Mood and affect are appropriate. Thoughts are goal oriented and rational. No tangential or magical thinking noted. Patient speaks in full sentences without needing to catch Her breath. HEENT: Normocephalic atraumatic. Pupils are equally round reactive to light. Extraocular muscles are intact. Conjunctivae are moist without any icterus noted. Moist mucous membranes. Posterior pharynx is normal. Cardiovascular: Heart is regular rate and rhythm S1 and S2 are present without any murmurs. Lungs: Clear to auscultation bilaterally no wheezes rhonchi or rales are appreciated. Abdomen: Soft and nondistended with normal bowel sounds. patient has epigastric tenderness as well as suprapubic tenderness. Extremities: Bilateral lower extremities are without edema. Skin: Well perfused without any obvious rashes. Const: Vital Signs, click to edit/add: Vital Signs - 24 hr 05/12/25 12:01 05/12/25 12:59 05/12/25 13:00 Temperature 97.4 F L Pulse Rate 60 68 Pulse Rate [Pulse Oximeter] 78 Respiratory Rate 20 Blood Pressure Blood Pressure [Ri ght Upper Arm] 134/74 Pulse Oximetry 96 98 95 Oxygen Delivery Me thod Room Air 05/12/25 13:03 05/12/25 13:15 05/12/25 13:32 Temperature Pulse Rate 66 69 Pulse Rate [Pulse Oximeter] Respiratory Rate Blood Pressure 126/63 133/61 Blood Pressure [Ri ght Upper Arm] Pulse Oximetry 96 98 Oxygen Delivery Me thod 05/12/25 14:02 05/12/25 14:07 05/12/25 14:08 Temperature Pulse Rate 74 71 Pulse Rate [Pulse Oximeter] Respiratory Rate 18 Blood Pressure 123/54 L 107/49 L Blood Pressure [Ri ght Upper Arm] Pulse Oximetry 97 93 Oxygen Delivery Me thod 05/12/25 14:15 05/12/25 14:30 Temperature Pulse Rate 81 72 Pulse Rate [Pulse Oximeter] Respiratory Rate Blood Pressure Blood Pressure [Ri ght Upper Arm] Pulse Oximetry 93 97 Oxygen Delivery Me thod Course Course ED Course: IV established and patient received fentanyl and subsequent Dilaudid for pain control. Her blood work was unremarkable. Her abdominal CT scan shows appendicitis. Discussed with Dr. Isaac, who will take the patient to the OR for further management. EKG, read by me, shows normal sinus rhythm with a pulse of 67. Normal MO, QTC and QRS intervals. Vital Signs Vital signs: Initial Vital Signs Temperature 97.4 F L 05/12/25 12:01 Temperature Source Temporal Artery Scan 05/12/25 12:01 Pulse Rate 78 05/12/25 12:01 Respiratory Rate 20 05/12/25 12:01 Blood Pressure 134/74 05/12/25 12:01 Blood Pressure Mean 94 05/12/25 12:01 Pulse Oximetry 96 05/12/25 12:01 Oxygen Delivery Method Room Air 05/12/25 12:01 Vital Signs Temperature 97.4 F L 05/12/25 12:01 Pulse Rate 78 05/12/25 12:01 Respiratory Rate 20 05/12/25 12:01 Blood Pressure 134/74 05/12/25 12:01 Pulse Oximetry 96 05/12/25 12:01 Oxygen Delivery Method Room Air 05/12/25 12:01 Temperature 97.4 F L 05/12/25 12:01 Pulse Rate 72 05/12/25 14:30 Respiratory Rate 18 05/12/25 14:08 Blood Pressure 107/49 L 05/12/25 14:08 Pulse Oximetry 97 05/12/25 14:30 Oxygen Delivery Method Room Air 05/12/25 12:01 Medications Administered Medications: Discontinued Medications Generic Name Dose Route Start Last Admin Trade Name Freq PRN Reason Stop Dose Admin Fentanyl 50 mcg 05/12/25 12:56 05/12/25 14:04 Fentanyl 100 Mcg/2 Ml Inj IVP 05/12/25 12:57 50 mcg ONCE ONE Administration Hydromorphone HCl 0.5 mg 05/12/25 14:48 05/12/25 15:33 Hydromorphone 0.5 Mg/0.5 Ml Inj IVP 05/12/25 14:49 0.5 mg ONCE ONE Administration Medical Decision Making MDM Narrative Medical decision making narrative: 64-year-old female with appendicitis. Patient will be surgically managed. Lab Data Labs: Lab Results 05/12/25 05/12/25 Range/Units 12:50 14:55 WBC 9.69 (4.50-11.00) K/uL RBC 4.11 (4.00-5.20) m/uL Hgb 12.9 (12.0-16.0) gm/dL Hct 39.8 (33.0-51.0) % MCV 97 (80-100) fL MCH 31 (26-34) pg MCHC 32 (32-36) gm/dL RDW Coeff of Maria Dolores 11.9 (11.5-15.5) % Plt Count 200 (140-440) K/uL Neut % (Auto) 77.3 H (42.0-72.0) % Lymph % (Auto) 17.5 L (20-44) % [place] % (Auto) 4.4 (0.0-11.0) % Eos % (Auto) 0.5 (0.0-7.0) % Baso % (Auto) 0.2 (0.0-3.0) % Neut # (Auto) 7.50 H (1.7-7.0) K/uL Lymph # (Auto) 1.70 (0.90-2.90) K/uL [place] # (Auto) 0.40 (0.00-0.90) K/UL Eos # (Auto) 0.05 (0.00-0.50) K/uL Baso # (Auto) 0.02 (0.00-0.30) K/uL Abs Immat Gran (auto) 0.01 (0.00-0.30) K/uL Imm/Tot Granulo (auto) 0.1 % Sodium 137 (135-149) mmol/L Potassium 3.6 (3.6-5.1) mmol/L Chloride 106 (96-114) mmol/L Carbon Dioxide 25 (20-32) mmol/L Anion Gap 6 L (7-15) mEq/L BUN 12 (7-30) mg/dL Creatinine 0.7 (0.5-1.5) mg/dL Estimated Creat Clear 44.95 Estimated GFR 97 ml/min Glucose 90 (60-115) mg/dL Lactate 0.7 (0.5-1.9) mmol/L Calcium 8.7 (8.4-10.6) mg/dL Total Bilirubin 1.0 (0.1-1.5) mg/dL Direct Bilirubin 0.2 (0.0-0.5) mg/dL AST 25 (12-35) U/L ALT 14 (4-35) U/L Alkaline Phosphatase 81 (40-150) U/L Troponin I < 0.01 (0.01-0.04) ng/mL C-Reactive Protein 0.9 (0.5-1.0) mg/dL Total Protein 7.0 (6.0-8.3) g/dL Albumin 4.1 (3.3-5.0) g/dL Lipase 43 (23-300) U/L Urine Color Yellow (Yellow) Urine Appearance Clear (Clear) Urine pH 7.0 (5.0-8.5) Ur Specific [place] 1.010 (1.000-1.030) Urine Protein Negative (Negative) Urine Glucose (UA) Negative (Negative) Urine Ketones 2+ A (Negative) Urine Blood 1+ A (Negative) Urine Nitrite Negative (Negative) Urine Bilirubin Negative (Negative) Urine Urobilinogen 1.0 (0.2-1.0) Ur Leukocyte Esterase Negative (Negative) Urine RBC 0-2 (0-2) Urine WBC 0-2 (0-5) Ur Squamous Epith Cells None (None-Few) Urine Bacteria None (None) Imaging Data CT scan - abdomen: Attestation: I have reviewed the pertinent imaging results. Radiologist's impression: Technique: CT abdomen/pelvis with IV contrast utilizing 66 mL Isovue 370 Comparison: CT abdomen/pelvis on October 18, 2015 Findings: Lower thorax: Minimal linear atelectasis in the right middle lobe and lingula. Abdomen/pelvis: The liver, gallbladder and biliary system, spleen, pancreas, and adrenal glands are unremarkable. The kidneys are normal in size and perfusion a normal fashion. Extrarenal pelvises bilaterally. No renal calculi. No hydroureteronephrosis. Redemonstration of a subcentimeter exophytic cyst at the lower pole of left kidney with likely minimal dependent calcium precipitate (renal milk of calcium cyst). The bladder is unremarkable. Status post hysterectomy. No suspicious adnexal lesions. Tiny hiatal hernia. No evidence of bowel obstruction. The proximal appendix is dilated to approximately 1.5 centimeters in diameter with thickened and enhancing mari measuring up to approximately 5 millimeters (series number 2, image [id number]; series number 4, image [id number]) with multiple appendicoliths, faint periappendiceal fat stranding, and trace free fluid in the pelvis, concerning for acute appendicitis. No free air or abscess. No abdominopelvic lymphadenopathy. Mild calcific atherosclerosis of the aortoiliac system. Soft tissue/musculoskeletal: Diastasis recti with tiny fat containing umbilical hernia. The bones are unremarkable for the patient`s age. Impression: 1. CT findings as detailed above concerning for acute, uncomplicated appendicitis; recommend consultation with surgery. 2. Additional incidental findings as detailed above. Discharge Plan Discharge Clinical Impression: Acute appendicitis Patient Disposition: XFER to OR Condition: Stable Follow Up/Referrals: Khris Sorenson MD [Primary Care Provider, Family Practice]
[2025-05-12 13:00] LABS: Lactate* 0.7 mmol/L (0.5-1.9)
[2025-05-12 13:01] LABS: Hematocrit* 39.8 % (33.0-51.0); Hemoglobin* 12.9 gm/dL (12.0-16.0); Immature Granulocytes Abs Auto 0.01 K/uL (0.00-0.30); Immature Granulocytes Pct Auto 0.1 %; Lymphocytes Absolute Auto 1.70 K/uL (0.90-2.90); Mean Corpuscular HGB Conc 32 gm/dL (32-36); Mean Corpuscular Hemoglobin 31 pg (26-34); Mean Corpuscular Volume 97 fL (80-100); RDW Coefficient of Variation % 11.9 % (11.5-15.5); Red Blood Count* 4.11 m/uL (4.00-5.20); White Blood Count* 9.69 K/uL (4.50-11.00)
[2025-05-12 13:03] LABS: Slide Review Reflex No
[2025-05-12 13:17] LABS: Albumin* 4.1 g/dL (3.3-5.0); Chloride* 106 mmol/L (96-114); Potassium* 3.6 mmol/L (3.6-5.1); Sodium* 137 mmol/L (135-149)
[2025-05-12 13:20] LABS: Alanine Aminotransferase* 14 U/L (4-35); Alkaline Phosphatase* 81 U/L (40-150); Anion Gap 6 mEq/L (7-15); Aspartate Amino Transferase* 25 U/L (12-35); Bilirubin Direct* 0.2 mg/dL (0.0-0.5); Bilirubin Total* 1.0 mg/dL (0.1-1.5); Blood Urea Nitrogen* 12 mg/dL (7-30); Calcium* 8.7 mg/dL (8.4-10.6); Carbon Dioxide* 25 mmol/L (20-32); Creatinine* 0.7 mg/dL (0.5-1.5); Est. Creatinine Clearance* 44.95; Estimated Glomerular Filt Rate 97 ml/min; Glucose* 90 mg/dL (60-115); Total Protein* 7.0 g/dL (6.0-8.3)
[2025-05-12 15:05] LABS: Appearance Urine Clear (Clear)
[2025-05-12] MEDS: LACTATED RINGERS 1000 ML 1,000 ML 125 ML IV (17:18)
--- NOTE | 2025-05-12 17:21 | P.GSCN_ITS ---
History of Present Illness Consult details Date Seen: 05/12/25 Consult date: 05/12/25 Narrative: The patient is a 64-year-old female who presented to the emergency department with 4 days of abdominal pain. She states that this has been present off and on for 3 months. She states that the pain is at her umbilicus and radiates to the left. She thought that it was diverticulitis toe she had began to limit her diet but it did not help. Sunday the pain became intense and it persisted so she came in to be seen. She has not had nausea or vomiting. No change in her bowel habits. He has not had fevers. No urinary symptoms. She last ate last evening. She has never had a colonoscopy. She has no family history of colon cancer. She has previously undergone hysterectomy. No other abdominal surgeries. 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 He uses alcohol intermittently. 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 Smoking Status: Heavy tobacco smoker What tobacco products do you use: cigarettes Smoking packs per day: 0.5 Smoking cigarettes per day: 10.0 Years smoked: 40 Smoking pack-years: 20.00 Do you use any of these nicotine containing products: None Second hand tobacco smoke exposure: No How often do you have a drink containing alcohol: never AUDIT-C Alcohol total score: 0 Non-prescribed substance use: denies use Meds Home Medications and Allergies Home Medications ?Medication ?Instructions ?Recorded ?Confirmed ?Type fluticasone propionate 50 1 spray intranasal BID #16 g kev 08/22/24 05/12/25 Rx mcg/actuation nasal spray,suspension (Flonase Allergy Relief) Allergies Allergy/AdvReac Type Severity Reaction Status Date / Time No Known Drug Allergies Allergy Verified 05/12/25 13:53 Exam Narrative: Exam Narrative: General appearance: Alert, cooperative, and in no distress Eyes: PERRLA, eye lids clear, and sclera white HENT Head: Normocephalic Ears: External ears normal Pulmonary: Clear to auscultation bilaterally Cardiovascular Heart: Regular rate and rhythm Extremities: warm and well perfused Gastrointestinal Abdominal: No large scars. Patient is tender in the right lower quadrant with some guarding and rebound. She is also tender in the left. Area of abdominal pain though she relates to her upper abdomen and left lower abdomen Musculoskeletal: Extremities: Upper: Both upper extremities have normal joint range of motion and intact strength. Lower: Both lower extremities have normal joint range of motion and intact strength. Skin: Normal skin color, texture, and turgor. Neurologic: No focal deficits Psychiatric: Alert, oriented, cooperative, normal affect. Const: Vital Signs, click to edit/add: Vital Signs - 24 hr 05/12/25 12:01 05/12/25 12:59 05/12/25 13:00 Temperature 97.4 F L Pulse Rate 60 68 Pulse Rate [Pulse Oximeter] 78 Respiratory Rate 20 Blood Pressure Blood Pressure [Ri ght Upper Arm] 134/74 Pulse Oximetry 96 98 95 Oxygen Delivery Me thod Room Air 05/12/25 13:03 05/12/25 13:15 05/12/25 13:32 Temperature Pulse Rate 66 69 Pulse Rate [Pulse Oximeter] Respiratory Rate Blood Pressure 126/63 133/61 Blood Pressure [Ri ght Upper Arm] Pulse Oximetry 96 98 Oxygen Delivery Me thod 05/12/25 14:02 05/12/25 14:07 05/12/25 14:08 Temperature Pulse Rate 74 71 Pulse Rate [Pulse Oximeter] Respiratory Rate 18 Blood Pressure 123/54 L 107/49 L Blood Pressure [Ri ght Upper Arm] Pulse Oximetry 97 93 Oxygen Delivery Me thod 05/12/25 14:15 05/12/25 14:30 05/12/25 14:32 Temperature Pulse Rate 81 72 73 Pulse Rate [Pulse Oximeter] Respiratory Rate Blood Pressure 116/54 L Blood Pressure [Ri ght Upper Arm] Pulse Oximetry 93 97 98 Oxygen Delivery Me thod 05/12/25 14:45 05/12/25 15:00 05/12/25 15:05 Temperature Pulse Rate 66 71 68 Pulse Rate [Pulse Oximeter] Respiratory Rate Blood Pressure 119/49 L Blood Pressure [Ri ght Upper Arm] Pulse Oximetry 98 99 98 Oxygen Delivery Me thod 05/12/25 15:22 05/12/25 15:30 05/12/25 15:32 Temperature Pulse Rate 74 69 67 Pulse Rate [Pulse Oximeter] Respiratory Rate Blood Pressure 121/51 L Blood Pressure [Ri ght Upper Arm] Pulse Oximetry 98 100 99 Oxygen Delivery Me thod 05/12/25 15:45 05/12/25 16:00 05/12/25 16:02 Temperature Pulse Rate 76 70 76 Pulse Rate [Pulse Oximeter] Respiratory Rate Blood Pressure 115/59 L Blood Pressure [Ri ght Upper Arm] Pulse Oximetry 93 97 94 Oxygen Delivery Me thod 05/12/25 16:15 05/12/25 16:30 05/12/25 16:34 Temperature Pulse Rate 78 80 75 Pulse Rate [Pulse Oximeter] Respiratory Rate Blood Pressure 195/176 H Blood Pressure [Ri ght Upper Arm] Pulse Oximetry 95 95 94 Oxygen Delivery Me thod 05/12/25 16:45 05/12/25 17:00 05/12/25 17:03 Temperature Pulse Rate 72 81 77 Pulse Rate [Pulse Oximeter] Respiratory Rate Blood Pressure 125/84 Blood Pressure [Ri ght Upper Arm] Pulse Oximetry 94 96 97 Oxygen Delivery Me thod Results Labs Labs: White blood cell count is 9.6 with a left shift. Electrolytes in normal limits. LFTs normal. Lipase normal. CRP is normal. EKG was showing normal sinus rhythm. Imaging Abdomen CT scan report/results: report reviewed and image reviewed Additional studies: CT abdomen and pelvis done 05/12/2025: Indication: ABDOMEN PAIN Technique: CT abdomen/pelvis with IV contrast utilizing 66 mL Isovue 370 Comparison: CT abdomen/pelvis on October 18, 2015 Findings: Lower thorax: Minimal linear atelectasis in the right middle lobe and lingula. Abdomen/pelvis: The liver, gallbladder and biliary system, spleen, pancreas, and adrenal glands are unremarkable. The kidneys are normal in size and perfusion a normal fashion. Extrarenal pelvises bilaterally. No renal calculi. No hydroureteronephrosis. Redemonstration of a subcentimeter exophytic cyst at the lower pole of left kidney with likely minimal dependent calcium precipitate (renal milk of calcium cyst). The bladder is unremarkable. Status post hysterectomy. No suspicious adnexal lesions. Tiny hiatal hernia. No evidence of bowel obstruction. The proximal appendix is dilated to approximately 1.5 centimeters in diameter with thickened and enhancing mari measuring up to approximately 5 millimeters (series number 2, image [id number]; series number 4, image [id number]) with multiple appendicoliths, faint periappendiceal fat stranding, and trace free fluid in the pelvis, concerning for acute appendicitis. No free air or abscess. No abdominopelvic lymphadenopathy. Mild calcific atherosclerosis of the aortoiliac system. Soft tissue/musculoskeletal: Diastasis recti with tiny fat containing umbilical hernia. The bones are unremarkable for the patient`s age. Impression: 1. CT findings as detailed above concerning for acute, uncomplicated appendicitis; recommend consultation with surgery. 2. Additional incidental findings as detailed above. Findings were discussed with Dr. Rojas at approximately 2:14 p.m. on 05/12/2025. Please note that all CT scans at this facility use dose modulation, iterative reconstruction, and/or weight-based dosing when appropriate to reduce radiation dose to as low as reasonably achievable. Dictated by Ferdinand Christie MD @ 05/12/2025 2:15:50 PM Progress Note:A&P Assessment and plan (1) Acute appendicitis: Status: Acute (2) Tobacco use: Status: Acute Plan The patient is a 64-year-old female with CT findings of appendicitis. Her symptom onset does not entirely fit with this picture, however she is tender in the right lower quadrant on exam with possible that she has been having some referred pain though it would be unusual that she would have epigastric and left-sided pain for 3 months. This does raise the possibility of other etiologies. However her appendix is markedly dilated with multiple appendicolith, she does have a left shift to her white blood cell count, so I did recommend appendectomy. We discussed appendectomy. We discussed risks and benefits of the procedure including but not limited to bleeding, need for conversion to open, risk of injury to other structures, need for possible bowel resection, and abscess formation. The patient understands that the risk of abscess is higher if the appendix is perforated. For that reason, we generally keep patient is in the hospital on IV antibiotics until vital signs and white blood cell count had normalized. We also discussed recovery including 2 weeks of lifting restrictions. She is agreeable to proceed we will plan on surgery urgently this evening.
[2025-05-12] MEDS: PIPERACILLIN/TAZOBACTAM 3.375 GM INJ IVPB (17:29)
[2025-05-12] MEDS: LACTATED RINGERS 1000 ML 1,000 ML 100 ML IV (17:54)
[2025-05-12] MEDS: BUPIVACAINE 0.25% 30 ML INJECTION (18:08)
--- NOTE | 2025-05-12 18:17 | P.GSOP_ITS ---
Operative Note Date of procedure: 05/12/25 Pre-op diagnosis: Acute appendicitis Post-op diagnosis: Same Type of Procedure: Laparoscopic appendectomy Indications: The patient is a 64-year-old female who presented to the emergency department with acute on chronic abdominal pain. Workup revealed a markedly dilated appendix with appendiceal wall thickening and mild inflammation. I recommended appendectomy and she agreed to proceed after discussion of risks and benefits Procedure Description: After discussing the risks and benefits of the procedure, the patient signed informed consent.? The operative site was marked and the patient was brought to the operating room and placed on the operating table in supine position.? Care was taken to pad the patient's pressure points.?? The patient was then intubated by anesthesia.?? The operative site was then prepped and draped in the usual abril rile fashion.? A time-out was then performed. Entrance to the abdomen was obtained via a 5 mm optical trocar in the left upper quadrant. The abdomen was insufflated and briefly surveyed for any signs of injury. There were none. A 12 mm port was placed inferior to the umbilicus as well as a 5 mm port in the left lower quadrant. Both were done under direct vision. The patient was then placed in Trendelenburg position with the right side up. The small bowel was gently moved out of the way and the appendix was in view. A small amount of dissection was necessary to free the appendix from the surrounding pelvic attachments. The appendix was grasped and pulled into view. A mesenteric window was created between the base of the appendix and the mesoappendix. The base of the appendix was dilated and therefore a cuff of cecum would need to be removed as well. I 1st divided the mesoappendix with a vascular load endo-YEIMI stapler. Once this was done I pulled the appendix and used a purple load Endo-YEIMI stapler to divide on the cecum below the base of the appendix. I took care to ensure that the terminal ileum was away from the staple line. Once this was done, the appendix was removed from the abdomen using an Endo-Catch bag. A small amount of fluid in the pelvis was suction. The staple lines were inspected for bleeding. These appeared hemostatic. The ports were then removed and the abdomen desufflated. The 12 mm port site fascia was closed with 0 Vicryl. The skin was then closed with absorbable subcuticular suture. Sterile dressings were then applied. Instrument sponge and needle counts were correct at the end of the case. The patient was then woken and transported to the PACU in stable condition. The patient tolerated the procedure well. Findings: Dilated appendix with inflammation at the base. Anesthesia: GETA Surgeon: Linda Isaac MD Estimated blood loss (mL): 5 Specimen: Appendix Condition: stable Disposition: PACU
--- NOTE | 2025-05-12 18:41 | P.ANES_ITS ---
Anesthesia Charges Start Date/Time Anesthesia Start Date: 05/12/25 Anesthesia Start Time: 17:18 Stop Date/Time Anesthesia Stop Date: 05/12/25 Anesthesia Stop Time: 18:29 Summary Emergency: STRESS TEST TECHNICIAN Coding CPT Codes CPT Codes: ANESTH SURG LOWER ABDOMEN - 79256 ([id number]) P2 - PATIENT W/MILD SYST DISEASE, QZ - STRESS TEST TECHNICIAN SVC W/O TRAFFIC INSPECTOR BY Additional Codes: Summary - Emergency: STRESS TEST TECHNICIAN ([id number])
--- NOTE | 2025-05-12 18:41 | W.ANESCHARGE ---
Anesthesia Charges Start Date/Time Anesthesia Start Date: 05/12/25 Anesthesia Start Time: 17:18 Stop Date/Time Anesthesia Stop Date: 05/12/25 Anesthesia Stop Time: 18:29 Summary Emergency: PROGRAM THERAPIST Coding CPT Codes CPT Codes: ANESTH SURG LOWER ABDOMEN - 95028 ([id number]) P2 - PATIENT W/MILD SYST DISEASE, QZ - PROGRAM THERAPIST SVC W/O GAS STATION CLERK BY Additional Codes: Summary - Emergency: PROGRAM THERAPIST ([id number])
[2025-05-12] MEDS: HYDROCODONE-ACETAMIN 5-325 MG 1 TAB PO (19:59)
--- NOTE | 2025-05-12 22:02 | PC.NURSE ---
Discharge Note 257 Patient moves independent. VSS. Afebrile. Advanced diet to full liquids tolerated well. A&Ox4. Incisions steri strips dry and intact. Patient discharged at 2145 accompanied by daughter and son.
== END 2025-05-12 21:45 | disposition home or self-care (01) ==
LOC: ED 14:32 → OR 17:33 → MEDSURG 18:59
PROVIDERS: Emergency Provider Family Medicine; PCP Family Medicine; Visit Provider Surgery
PROC: 0DTJ4ZZ Resection of Appendix, Percutaneous Endoscopic Approach (ICD-10-PCS; CPT 44970; principal; 2025-05-12 17:00)
DX: K35.80 Unspecified acute appendicitis (principal); F17.210 Nicotine dependence, cigarettes, uncomplicated
CPT/HCPCS: 44970; 00840; 36415; 74177; 80048; 80076; 81001; 83605; 83690; 84484; 85025; 86140; 87086; 93005; 99140; 99284; 99285; A9270; J0330; J0665; J1100; J1171; J1885; J2250; J2405; J2543; J2704; J3010; J3490; J7120; Q9967